=== PATIENT | female | born 1970 | race Caucasian/White ===

== ENCOUNTER 2017-09-17 11:02 | Emergency (ER) | payer MEDICAID, OTHER ==
[2017-09-17] MEDS: BUPIVACAINE 0.25% (MPF) 30 ML INJ INJ (13:28)
== END 2017-09-17 15:38 | disposition home or self-care (01) ==
LOC: FTE 11:02
DX: M62.830 Muscle spasm of back (principal); R40.2412 Glasgow coma scale score 13-15, at arrival to emergency department
CPT/HCPCS: 20552; 72100; 81025; 99283-25